=== PATIENT | female | born 1960 | race Two or more races ===

== ENCOUNTER 2021-02-22 13:51 | Emergency (ER) | payer OTHER ==
[~2021-02-22] VITALS: Ht 152.4 cm; Wt 54.9 kg
[2021-02-22] MEDS ORDERED: AMOX-CLAV 875-1 EACH PO (21:39)
== END 2021-02-22 21:53 | disposition home or self-care (01) ==
LOC: ER 13:51
DX: L03.115 Cellulitis of right lower limb (principal); I10 Essential (primary) hypertension; Z03.818 Encounter for observation for suspected exposure to other biological agents ruled out